=== PATIENT | male | born 1975 | race Caucasian/White ===

== ENCOUNTER 2022-02-26 11:04 | Emergency (ER) | payer SELFPAY ==
[2022-02-26] VITALS (8 sets, daily range): BP systolic 110–135; BP diastolic 65–78; PULSE 51–62; RESP 14–16; TEMP 36.2; O2SAT 98–100
--- NOTE | ~2022-02-26 | XR_ITS ---
XR abdomen/kub 1V 02/26/2022 13:17 INDICATION: Flank pain TECHNIQUE: KUB COMPARISON: None FINDINGS: Bowel gas pattern is normal. There is no evidence of free air, mass, organomegaly, ascites or obstruction. There is a calcification in the right pelvis, suspicious for distal ureteral stone. The bones appear intact. IMPRESSION: 1: Probable distal right ureteral stone near the UVJ.. Reviewed, dictated and finalized at location A.
--- NOTE | ~2022-02-26 | CT_ITS ---
EXAMINATION: CT abdomen pelvis wo con DATE: 02/26/2022 12:57 INDICATION: Right flank pain and hematuria TECHNIQUE: Computed tomography (CT) of the abdomen and pelvis was performed without intravenous contr ast. Automated exposure control and iterative reconstruction technique were employed. The dose-length product was 299.83 mGy-cm. COMPARISON: None FINDINGS: Minimal dependent atelectasis in the left lower lobe. Heart size is normal. No pericardial or pleural effusion. Liver, gallbladder, spleen, pancreas and bilateral adrenal glands are normal. 1 mm nonobst ructing stone in upper pole calyx of the left kidney. Obstructing 3-4 mm stone at the distalmost left ureter within 1 cm of the ureterovesicular junction. Bladder is normal. There are few scattered colo yoselin diverticula without adjacent inflammatory change to suggest diverticulitis. Small bowel and appen mona are normal. No free intraperitoneal gas or fluid. No pathologically enlarged abdominal or pelvic lymphadenopathy. Bones are unremarkable. IMPRESSION: 1. Bilateral nephrolithiasis with obstructing 3-4 mm stone at the distalmost right ureter with mild r ight hydronephrosis. Reviewed, dictated and finalized at location B. IMPRESSION: 1. Bilateral nephrolithiasis with obstructing 3-4 mm stone at the distalmost ri ght ureter with mild right hydronephrosis.
[2022-02-26 11:57] LABS: Basophils Percent Auto 0.5 % (0.2-1.2); Eosinophils Absolute Auto 0.1 K/mm3 (0-0.3); Eosinophils Percent Auto 1.6 % (0-4.4); Hemoglobin 13.9 g/dL (14.0-18.0); Immature Granulocyte Absolute 0.03 K/mm3 (0.00-0.031); Immature Granulocyte Percent A 0.3 % (0-0.5); Lymphocytes Absolute Auto 1.34 K/mm3 (0.9-3.2); Lymphocytes Percent Auto 15.5 % (18.3-44.2); Mean Corpuscular HGB Conc 33.1 g/dl (32-36); Mean Corpuscular Hemoglobin 30.8 pg (26-34); Mean Corpuscular Volume 92.9 fl (80-100); Monocytes Absolute Auto 0.6 K/mm3 (0.1-0.6); Monocytes Percent Auto 6.9 % (2.6-8.5); Neutrophils Absolute Auto 6.5 K/mm3 (1.3-6.7); Neutrophils Percent Auto 75.2 % (45.5-73.1); Platelet Count Result 184 k/mm3 (150-375); Red Blood Count 4.52 M/mm3 (4.6-6.20); Red Cell Distribution Width 11.9 % (11.5-14.5); White Blood Count 8.7 K/mm3 (4.5-10.0)
[2022-02-26 12:08] LABS: Alanine Aminotransferase 17 U/L (6-50); Albumin Level 3.8 g/dL (3.5-5.1); Alkaline Phosphatase 90 U/L (38-126); Anion Gap 6 mmol/L (8-16); Aspartate Amino Transferase 27 U/L (17-59); Bilirubin,Total 0.6 mg/dL (0.2-1.3); Blood Urea Nitrogen 11 mg/dL (9-20); Calcium 8.5 mg/dL (8.4-10.2); Carbon Dioxide 29 mmol/L (22-30); Chloride 106 mmol/L (98-107); Estimated CRCL calculation 67 ml/min; Estimated Glomerular Filt Rate > 60; Glucose 106 mg/dL (65-110); Sodium 141 mmol/L (137-145)
[2022-02-26 12:09] LABS: INR 1.2; Partial Thromboplastin Time 27.4 SECONDS (22.3-36.8); Prothrombin Time 14.6 Seconds (11.1-14.7)
[2022-02-26] MEDS: PANTOPRAZOLE SODIUM IV 40 MG VIAL IV PUSH (12:46)
[2022-02-26] MEDS: HYDROmorphone HCL INJ (*CRX) 1 MG/ML SYR 0.5 MG IV PUSH (12:46)
[2022-02-26] MEDS: SODIUM CHLORIDE 0.9% IV 1,000 ML 999 ML IV CONT (12:53)
--- NOTE | 2022-02-26 13:10 | ED.GENADULT ---
HPI - General Adult General Chief complaint: GI Bleed Stated complaint: right abd pain/rectal bleeding Time Seen by Provider: 02/26/22 11:57 Source: patient Mode of arrival: ambulatory Limitations: no limitations History of Present Illness HPI narrative: This is a 46 year old male who presents for evaluation of right lower abdominal pain. He developed right lower abdominal 4 weeks ago. He describes this pain has sharp, stabbing. He states his pain resolved spontaneously for 3 weeks and then it returned today. He states he has associated pain in his right flank and penile pain. He also reports 4 weeks ago he had gross hematuria. Today his urine is kenny gold color. He has increased urinary frequency and urgency. He denies fever, chills, or diarrhea. He denies rectal bleeding. He also states he had nausea and vomiting today. HE states his emesis was blood tinged mucous. HE denies melena. He rates his pain has 9/10. He has not taken anything for pain. Related Data Allergies Allergy/AdvReac Type Severity Reaction Status Date / Time Penicillins Allergy Unknown Verified 02/26/22 11:40 Review of Systems Review of Systems: All systems reviewed & are unremarkable except as noted in HPI and below Constitutional: Constitutional: Denies chills, Denies fatigue and Denies weakness ENT: Denies sore throat Cardiovascular: Cardiovascular: Denies chest pain, Denies rapid heart rate and Denies radiating jaw, neck or arm pain Respiratory: Respiratory: Denies chest congestion Gastrointestinal: Gastrointestinal: Reports abdominal pain, Denies bloating, Denies heartburn, Denies diarrhea, Reports nausea and Reports vomiting Genitourinary: Genitourinary: Reports hematuria, Reports dysuria and Reports urinary frequency Musculoskeletal: Musculoskeletal: Reports back pain PMFSH Past Medical History Medical History (Updated 02/26/22 @ 21:13 by Audra Patricia MD) Kidney stones Surgical History Surgical History (Updated 02/26/22 @ 13:17 by Audra Patricia MD) No pertinent past surgical history Social History Social History (Updated 02/26/22 @ 13:17 by Audra Patricia MD) Smoking status: Current every day smoker Tobacco type: e-cigarettes/vaping Alcohol intake: never Substance use type: marijuana Exam Const: General: healthy appearing Nutritional Appearance: well nourished Orientation/consciousness: patient oriented x3 HENMT: Head: normal to inspection Face and sinus: normal facial exam Mouth: Yes Normal oral and palatal mucosa present Eyes: EOM: EOMs intact bilaterally Chest: Chest palpation & inspection: normal inspection of the chest Resp: Effort & Inspection: normal respiratory effort Cardio: Rate: bradycardic Rhythm: regular rhythm Heart sounds: no murmurs GI: GI Palp: Yes Soft to palpation, Yes Tenderness to palpation present (GI) (RLQ), No Guarding due to palpation present (GI), No Rigid due to palpation and No Hernia present Auscultation: normal bowel sounds : General: Yes no CVA tenderness Back/Spine/Pelvis: Back: no CVA tenderness Skin: General skin exam: normal color Rashes: no rashes Neuro: General: patient oriented x3, moves all extremities and CN's II-XI intact bilaterally Extrem: General: normal to inspection Psych: Mental Status: mental status grossly normal Course Reevaluation(s) Reevaluation #1: Patient's sitting in bed eager for discharge. I discussed he has kidney stones as cause of his pain. I discussed discharge plan. Date: 02/26/22 Time: 14:00 Vital Signs Vital signs: Vital Signs Temperature 97.1 F L 02/26/22 11:25 Pulse Rate 51 L 02/26/22 11:25 Respiratory Rate 16 02/26/22 11:25 Blood Pressure 135/69 02/26/22 11:25 Pulse Oximetry 100 02/26/22 11:25 Oxygen Delivery Room Air 02/26/22 11:25 Temperature 97.1 F L 02/26/22 11:25 Pulse Rate 62 02/26/22 14:23 Respiratory Rate 16 02/26/22 14:23 Blood Pressure 112/6
[2022-02-26 13:31] LABS: Add Urine Microscopic? YES; Appearance Urine Clear (Clear); Bilirubin Urine Negative (Negative); Blood Urine 3+ (Negative); Color Urine Yellow (Yellow); Glucose Urine UA Negative (Negative); Ketones Urine Negative (Negative); Leukocyte Esterase Ur Negative LEU/UL (Negative); Nitrate Urine Negative (Negative); Protein Urine Negative (Negative); Specific Grav Ur 1.015 (1.001-1.035)
[2022-02-26] MEDS: TAMSULOSIN HCL 0.4 MG CAPSULE PO (13:40)
[2022-02-26 13:53] LABS: Mucus Urine Rare /lpf; RBC Urine >75 /hpf (0-2); WBC Urine 0-3 /hpf
== END 2022-02-26 14:25 | disposition home or self-care (01) ==
PROVIDERS: Emergency Medicine; Emergency Provider General Practice
DX: N13.2 Hydronephrosis with renal and ureteral calculous obstruction (principal); F17.290 Nicotine dependence, other tobacco product, uncomplicated
CPT/HCPCS: 36415; 74018; 74176; 80053; 81001; 85025; 85610; 85730; 86850; 86900; 86901; 96361; 96374; 96375; 99284; A9270; C9113; J1170; J7030